=== PATIENT | female | born 1955 | race African-American/Black ===

== ENCOUNTER 2016-11-12 17:43 | Emergency (ER) | payer OTHER ==
[2016-11-12 19:27] LABS: Prothrombin Time 13.5 SEC (12.0-14.7)
[2016-11-12 19:28] LABS: PTT 31.2 SEC (22.9-36.1)
[2016-11-12 19:32] LABS: ALT (SGPT) 29 U/L (0-55); AST (SGOT) 24 U/L (5-34); Alkaline Phosphatase 148 U/L (40-150); Anion Gap 13 mmol/L (10-20); BUN (Urea Nitrogen) 19 mg/dL (9.8-20.1); Bilirubin, Total 0.9 mg/dL (0.2-1.2); Calc. Creatinine Clearance 0 mL/min (70-130); Calcium 9.4 mg/dL (7.8-10.44); Carbon Dioxide 24 mmol/L (23-31); Chloride 108 mmol/L (98-107); Estimated GFR-MDRD 71; Globulin 3.3 g/dL (2.4-3.5); Protein, Total 7.3 g/dL (5.8-8.1)
[2016-11-12 19:42] LABS: #Basophils 0.1 thou/uL (0.0-0.2); #Eosinphils 0.1 thou/uL (0.0-0.7); #Lymphocytes 2.1 thou/uL (1.20-3.40); #Monocytes 0.4 thou/uL (0.11-0.59); #Neutrophils 3.7 thou/uL (1.40-6.50); %Eosinophils 2.2 % (0.0-10.0); %Lymphocytes 32.7 % (21.0-51.0); %Monocytes 6.4 % (0.0-10.0); Mean Platelet Volume 9.5 fL (7.4-10.4); Microcytosis SLIGHT = 6-15 cells (100X) (0-5/hpf); Ovalocytes SLIGHT = 2-5 cells (100X) (0-1/hpf); Polychromasia SLIGHT = 2-3 cells (100X) (0-2/hpf); Red Blood Cell (RBC) Count 6.16 mill/uL (4.20-5.40); White Blood Cell (WBC) Count 6.4 thou/uL (4.8-10.8)
[2016-11-12 19:44] LABS: Lipase 26 U/L (8-78)
--- NOTE | 2016-11-12 20:24 | ERRECORD ---
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 No other symptoms and no more nausea. No previous episodes. HISTORIAN: History provided by patient. LOCATION FEMALE: No localizing symptoms. QUALITY: no pain. TIME COURSE: Sudden onset of symptoms, Symptoms have resolved. ASSOCIATED WITH FEMALE: No associated bright red blood per rectum, No associated chills, No associated constipation, No associated diarrhea, No associated fever, Associated with hematemesis, No associated hematuria, No associated nausea, No associated inability to tolerate oral intake, No associated urinary tract infection signs or symptoms, Associated with vomiting, Number of times: 1, currently resolved. EXACERBATED BY: Patient's condition exacerbated by nothing. RELIEVED BY: Patient's condition relieved by spontaneous. ROS (20:07 JL) CONSTITUTIONAL: Historian denies chills, denies fever. ENT: Historian denies rhinorrhea, pt reports after vomiting his throat feels a little sore. CARDIOVASCULAR: Historian denies chest pain. RESPIRATORY: Historian denies cough, denies shortness of breath, denies sputum. GI: Historian denies abdominal pain, denies constipation, denies diarrhea, reports hematemesis, denies hematochezia, denies melena, denies nausea, reports vomiting. GENITOURINARY FEMALE: Historian denies dysuria, denies frequency, denies hematuria. NEUROLOGIC: Historian denies dizziness, denies headache. HEMO/LYMPHATIC: Historian denies abnormal blood clotting, denies anemia, denies easy bruising. PAST MEDICAL HISTORY MEDICAL HISTORY: Notes: as listed, Notes: migraines,. (17:58 MSPE) FEMALE SURGICAL HISTORY: as listed plus, Surgical history of cholecystectomy, open, left knee surgery. (17:58 MSPE) PSYCHIATRIC HISTORY: No previous psychiatric history, No previous psychiatric history. (17:58 MSPE) SOCIAL HISTORY: Social History includes lives alone, Patient drinks socially, Patient denies drug use, Patient has no smoking history. (17:58 MSPE) NOTES: Nursing records reviewed, Agree with nursing records. (20:09 JLOY) &a-1R&a+25V*p+0X*n6329V*c202B*c15G*c2P*p-0X&a-25V&a+1R Name: Haley Goins : 1955 F61 MedRec: [id number] AcctNum: [id number] Prepared: SatNov 12, 2016 20:44 by Interface Page 1 of 3 pMD [facility] EMERGENCY RECORD KNOWN ALLERGIES No Known Allergies CURRENT MEDICATIONS (18:08 GHIA) None pt used to take migrane meds but not any more VITAL SIGNS VITAL SIGNS: BP: 163/95, Pulse: 72, Resp: 18, Temp: 97.8PO, Pain: 4, O2 sat: 98 on RA, Time: 11/12/2016 17:59. (17:59 GHIA) BP: 157/88, Pulse: 68, Resp: 18, Pain: 4, O2 sat: 99 on RA, Time: 11/12/2016 18:06. (18:06 GHIA) BP: 137/74, Pulse: 60, Resp: 14, O2 sat: 97 on Room Air, Time: 11/12/2016 19:05. (19:05 KASA) BP: 149/68, Pulse: 61, Resp: 15, O2 sat: 100, Time: 11/12/2016 19:30. (19:30 KASA) BP: 133/81, Pulse: 60, Resp: 15, O2 sat: 99 on Room Air, Time: 11/12/2016 20:00. (20:00 KASA) BP: 144/72, Pulse: 66, Resp: 19, Temp: 97.7 (Temporal), Pain: 4, O2 sat: 97 on Room Air, Time: 11/12/2016 20:30. (20:30 KASA) PHYSICAL EXAM (20:08 [facility]) CONSTITUTIONAL: Vital signs reviewed, Patient appears non toxic, Patient alert and oriented to person, place and time. EYES: Eye exam included findings of eyelids normal to inspection, Pupils equally round and reactive to light, Conjunctiva normal. ENT: Pharynx exam normal, Uvula exam normal, Tonsil exam normal, Mouth exam included findings of, right post soft palate with small well-defined red lesion few mm across. No active bleedings. Has the appearance of a small hemangioma. NECK: Neck exam included findings of normal range of motion, Trachea midline, no cervical adenopathy. RESPIRATORY CHEST: Respiratory exam included findings of no respiratory distress, Breath sounds clear, No wheezing, No rales, No rhonchi, Chest exam included findings of chest movement symmetrical. CARDIOVASCULAR: Cardiovascular exam included findings of heart rate regular rate and rhythm, Heart sounds normal. ABDOMEN FEMALE: Abdominal exam included findings of abdomen nontender, Bowel sounds normal. NEURO: [place] coma scale 15, Neuro exam findings include patient oriented to person, place and time, Speech normal. SKIN: Skin exam included findings of skin warm, dry, and normal in color, no rash. PSYCHIATRIC: Normal affect. DOCTOR NOTES (20:10 RHONA) TEXT: Discussed the possibility that the bleeding may have come from the lesion in her mouth. Recommended close o/p f/u with ENT for eval and possible biopsy. &a-1R&a+25V*p+0X*n8413H*c202B*c15G*c2P*p-0X&a-25V&a+1R Name: Haley Goins : 1955 F61 MedRec: [id number] AcctNum: [id number] Prepared: SatNov 12, 2016 20:44 by Interface Page 2 of 3 pMD [facility] EMERGENCY RECORD PROBLEM LIST No recorded problems DIAGNOSIS (20:01 RHONA) FINAL: PRIMARY: Nausea with vomiting. PRESCRIPTION No recorded prescriptions DISPOSITION PATIENT: Disposition Type: Discharge, Disposition: *Discharge Home. (20:01 RHONA) Patient left the department. (20:37 NAVID) Johnson: ANAHY=ANNAMARIE Mayorga, Zeina MELGOZA=MD Kenney, Chase SHOEMAKER=ANNAMARIE Betts, Maggie GARY=ANNAMARIE Pineda, Saba &a-1R&a+25V*p+0X*l4406N*c202B*c15G*c2P*p-0X&a-25V&a+1R Name: Haley Goins : 1955 F61 MedRec: [id number] AcctNum: [id number] Prepared: SatNov 12, 2016 20:44 by Interface Page 3 of 3 pMD MTDD
--- NOTE | 2016-11-12 20:30 | PICIS ---
[facility] EMERGENCY RECORD TRIAGE (17:55 MSPE) TRIAGE NOTES: Pt with vomiting with streaks of red "blood" in it. (17:55 MSPE) PATIENT: NAME: Haley Goins, AGE: 61, GENDER: female, : Sat1955, TIME OF GREET: SatNov 12, 2016 17:44, PREFERRED LANGUAGE: Romansh, ETHNICITY: Not or , ECODE BILLING MAP: [facility], SSN: [id number], Zip Code: [address], KG WEIGHT: 95.25, PHONE: , , , PERSON ID: [id number], PCP: MD GALDAMEZ ROQUE. 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 (17:55 MSPE) ADMISSION: URGENCY: 3 Urgent, ADMISSION SOURCE: Work, TRANSPORT: CAR, BED: TRIAGE. (17:55 MSPE) ASSESSMENT: Assessment: pt with vomiting with streaks of "blood" noted in it...rapid onset. (17:58 MSPE) PAIN: Patient complains of pain described as, aching, on a scale 0-10 patient rates pain as 4, Location cedillo, Pain is constant. (17:58 MSPE) IMMUNIZATIONS: Flu vaccine not up to date, Tetanus not up to date, Pneumococcal vaccine not up to date. (17:58 MSPE) SIRS SCORING: Heart Rate 55-109 (0), Temp range 96.8-101.1 (0), respiratory rate 12-24 (0), Mental Status altered: no (0). (17:58 MSPE) TRIAGE SCREENING: Patient denies suicidal ideation, Patient denies presence of domestic violence. (17:58 MSPE) LMP: LMP: Menopause. 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 (17:58 MSPE) PROVIDERS: TRIAGE NURSE: Saba Pineda RN. (17:55 MSPE) PREVIOUS VISIT ALLERGIES: No Known Allergies. (17:55 MSPE) No Known Allergies. (17:58 MSPE) KNOWN ALLERGIES No Known Allergies CURRENT MEDICATIONS (18:08 GHIA) None pt used to take migrane meds but not any more VITAL SIGNS VITAL SIGNS: BP: 163/95, Pulse: 72, Resp: 18, Temp: 97.8PO, Pain: 4, O2 sat: 98 on RA, Time: 11/12/2016 17:59. (17:59 GHIA) BP: 157/88, Pulse: 68, Resp: 18, Pain: 4, O2 sat: 99 on RA, Time: 11/12/2016 18:06. (18:06 GHIA) BP: 137/74, Pulse: 60, Resp: 14, O2 sat: 97 on Room Air, Time: 11/12/2016 19:05. (19:05 KASA) BP: 149/68, Pulse: 61, Resp: 15, O2 sat: 100, Time: 11/12/2016 19:30. (19:30 KASA) BP: 133/81, Pulse: 60, Resp: 15, O2 sat: 99 on Room Air, Time: 11/12/2016 &a-1R&a+25V*p+0X*i2964J*c202B*c15G*c2P*p-0X&a-25V&a+1R Name: Haley Goins : 1955 F61 MedRec: [id number] AcctNum: [id number] Prepared: SatNov 12, 2016 20:51 by Interface Page 1 of 8 pMD [facility] EMERGENCY RECORD 20:00. (20:00 KASA) BP: 144/72, Pulse: 66, Resp: 19, Temp: 97.7 (Temporal), Pain: 4, O2 sat: 97 on Room Air, Time: 11/12/2016 20:30. (20:30 KASA) NURSING ASSESSMENT: HEAD-TO-TOE (17:59 GHIA) CONSTITUTIONAL: Patient arrives ambulatory, Gait steady, History obtained from patient, Patient appears comfortable, Patient cooperative, Patient alert, Oriented to person, place and time, Skin warm, Skin dry, Skin normal in color, Mucous membranes pink, Mucous membranes moist, Patient is well-groomed, Patient complains of vomiting (with red streaks); CEDILLO, Pt in room in bed in gown. Assess. Plan of care of pt in Er discussed. PAIN: aching pain, Cedillo...all day...is 'normal for pt", Onset of pain 30 " min ago, constant, on a scale 0-10 patient rates pain as 4. SKIN: Skin assessment findings include skin warm, Skin dry, Skin normal in color, Notes: intact. RESPIRATORY/CHEST: Respiratory assessment findings include respiratory effort easy. CARDIOVASCULAR: Cardiovascular assessment findings include heart rate normal. ABDOMEN: Abdomen assessment findings include abdomen symmetrical, Associated with nausea, Associated with vomiting, no associated diarrhea. GENITOURINARY FEMALE: no associated urinary complaints. NOTES: Emotional support needed and given, Patient tolerated procedure well. VITAL SIGNS: BP: 163, / 95, Pulse: 72, Resp: 18, Temp: 97.8PO, Pain: 4, O2 sat: 98, on: RA. NURSING PROCEDURE: COMMUNICATIONS (19:44 KASA) COMMUNICATIONS: Critical lab value, received at 1944, received from [facility], Critical lab result: Lipase -26, given to Dr. Moulton, results read back and verified. NURSING PROCEDURE: DISCHARGE NOTE (20:33 KASA) DISCHARGE: Patient discharged to home, ambulating without assistance, driving self, unaccompanied, Summary of Care printed/ provided, Discharge instructions given to patient, Simple or moderate discharge teaching performed, . Educated and provided handout regarding diagnosis of: Nausea with vomiting Follow up with PCP as needed Follow up with Specialist in 7-10 days, Above person(s) verbalized understanding of discharge instructions and follow-up care, Patient treated and evaluated by physician. BELONGINGS: Belongings and valuables with patient upon arrival to the Emergency Department include:, Belongings and valuables with patient at time of discharge include:, Belongings remain with patient, Valuables remain with patient. &a-1R&a+25V*p+0X*s5002K*c202B*c15G*c2P*p-0X&a-25V&a+1R Name: Haley Goins : 1955 F61 MedRec: [id number] AcctNum: [id number] Prepared: SatNov 12, 2016 20:51 by Interface Page 2 of 8 pMD [facility] EMERGENCY RECORD SAFETY: Side rails up, Cart/Stretcher in lowest position, Call light within reach, Hospital ID band on. NURSING PROCEDURE: LAB DRAW (19:10 KASA) PATIENT IDENTIFIER: Patient actively involved in identification process, Patient's identity verified by patient stating name, Patient's identity verified by patient stating date. LAB DRAW: Lab draw indicated for obtaining specimens for evaluation, Initial lab draw performed, by venipuncture, from left antecubital, in one attempt, Lab specimens labeled in the presence of the patient and sent to lab. FOLLOW-UP: After procedure, dressing applied to site, After procedure, no swelling at site, After procedure, no active bleeding from site. SAFETY: Side rails up, Cart/Stretcher in lowest position, Call light within reach, Hospital ID band on. NURSING PROCEDURE: NURSE NOTES NURSES NOTES: Patient in no apparent distress, Assistance offered to patient, Notes: Call light given to pt with instructions on use. (18:06 GHIA) Shift change report given, to to Maggie Rn at bedside, Provided opportunity to answer questions, Pt sitting up in bed; cheerful. No c/o. (19:07 GHIA) VITAL SIGNS: BP: 157, / 88, Pulse: 68, Resp: 18, Pain: 4, O2 sat: 99, on: RA. (18:06 GHIA) ORDER DETAILS Order Name: CBC with Differential, Status: Active, Time: 18:57 11/12/2016, User: RHONA, - Ordered for: MD Moulton Joshua, - Entered by: MD Moulton Joshua - [facility] Nov 12, 2016 18:57, - Quantity: 1, Order Name: Comprehensive Metabolic Panel, Status: Active, Time: 18:57 11/12/2016, User: RHONA, - Ordered for: MD Moulton Joshua, - Entered by: MD Moulton Joshua - [facility] Nov 12, 2016 18:57, - Quantity: 1, Order Name: Lipase, Status: Active, Time: 18:57 11/12/2016, User: RHONA, - Ordered for: MD Moulton Joshua, - Entered by: MD Moulton Joshua - [facility] Nov 12, 2016 18:57, - Quantity: 1, Order Name: Protime with INR, Status: Active, Time: 18:57 11/12/2016, User: RHONA, - Ordered for: MD Moulton Joshua, - Entered by: MD Moulton Joshua - SatNov 12, 2016 18:57, - Quantity: 1, Order Name: PAOLO, Status: Active, Time: 18:57 11/12/2016, User: RHONA, &a-1R&a+25V*p+0X*s4003T*c202B*c15G*c2P*p-0X&a-25V&a+1R Name: Haley Goins : 1955 F61 MedRec: [id number] AcctNum: [id number] Prepared: SatNov 12, 2016 20:51 by Interface Page 3 of 8 pMD [facility] EMERGENCY RECORD - Ordered for: MD Moulton Joshua, - Entered by: MD Moulton Joshua - SatNov 12, 2016 18:57, - Quantity: 1. 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 No other symptoms and no more nausea. No previous episodes. HISTORIAN: History provided by patient. LOCATION FEMALE: No localizing symptoms. QUALITY: no pain. TIME COURSE: Sudden onset of symptoms, Symptoms have resolved. ASSOCIATED WITH FEMALE: No associated bright red blood per rectum, No associated chills, No associated constipation, No associated diarrhea, No associated fever, Associated with hematemesis, No associated hematuria, No associated nausea, No associated inability to tolerate oral intake, No associated urinary tract infection signs or symptoms, Associated with vomiting, Number of times: 1, currently resolved. EXACERBATED BY: Patient's condition exacerbated by nothing. RELIEVED BY: Patient's condition relieved by spontaneous. ROS (20:07 RHONA) CONSTITUTIONAL: Historian denies chills, denies fever. ENT: Historian denies rhinorrhea, pt reports after vomiting his throat feels a little sore. CARDIOVASCULAR: Historian denies chest pain. RESPIRATORY: Historian denies cough, denies shortness of breath, denies sputum. GI: Historian denies abdominal pain, denies constipation, denies diarrhea, reports hematemesis, denies hematochezia, denies melena, denies nausea, reports vomiting. GENITOURINARY FEMALE: Historian denies dysuria, denies frequency, denies hematuria. NEUROLOGIC: Historian denies dizziness, denies headache. HEMO/LYMPHATIC: Historian denies abnormal blood clotting, denies anemia, denies easy bruising. PAST MEDICAL HISTORY MEDICAL HISTORY: Notes: as listed, Notes: migraines,. (17:58 MSPE) FEMALE SURGICAL HISTORY: as listed plus, Surgical history of cholecystectomy, open, left knee surgery. (17:58 MSPE) PSYCHIATRIC HISTORY: No previous psychiatric history, No previous psychiatric history. (17:58 MSPE) SOCIAL HISTORY: Social History includes lives alone, Patient drinks socially, Patient denies drug use, Patient has no &a-1R&a+25V*p+0X*t8691N*c202B*c15G*c2P*p-0X&a-25V&a+1R Name: Haley Goins : 1955 F61 MedRec: [id number] AcctNum: [id number] Prepared: SatNov 12, 2016 20:51 by Interface Page 4 of 8 pMD [facility] EMERGENCY RECORD smoking history. (17:58 MSPE) NOTES: Nursing records reviewed, Agree with nursing records. (20:09 [facility]) PHYSICAL EXAM (20:08 [facility]) CONSTITUTIONAL: Vital signs reviewed, Patient appears non toxic, Patient alert and oriented to person, place and time. EYES: Eye exam included findings of eyelids normal to inspection, Pupils equally round and reactive to light, Conjunctiva normal. ENT: Pharynx exam normal, Uvula exam normal, Tonsil exam normal, Mouth exam included findings of, right post soft palate with small well-defined red lesion few mm across. No active bleedings. Has the appearance of a small hemangioma. NECK: Neck exam included findings of normal range of motion, Trachea midline, no cervical adenopathy. RESPIRATORY CHEST: Respiratory exam included findings of no respiratory distress, Breath sounds clear, No wheezing, No rales, No rhonchi, Chest exam included findings of chest movement symmetrical. CARDIOVASCULAR: Cardiovascular exam included findings of heart rate regular rate and rhythm, Heart sounds normal. ABDOMEN FEMALE: Abdominal exam included findings of abdomen nontender, Bowel sounds normal. NEURO: [place] coma scale 15, Neuro exam findings include patient oriented to person, place and time, Speech normal. SKIN: Skin exam included findings of skin warm, dry, and normal in color, no rash. PSYCHIATRIC: Normal affect. EVENTS TRANSFER: Triage to Emergency Triage. (SatNov 12, 2016 17:55 MSPE) Emergency Triage to Emergency Room -03. (18:01 MSPE) Removed from Emergency Emergency Room -03. (20:37 KASA) DOCTOR NOTES (20:10 JL) TEXT: Discussed the possibility that the bleeding may have come from the lesion in her mouth. Recommended close o/p f/u with ENT for eval and possible biopsy. PROBLEM LIST No recorded problems DIAGNOSIS (20: JL) FINAL: PRIMARY: Nausea with vomiting. DISPOSITION PATIENT: Disposition Type: Discharge, Disposition: *Discharge Home. (20:01 JLOY) Patient left the department. (20:37 KASA) &a-1R&a+25V*p+0X*y2163I*c202B*c15G*c2P*p-0X&a-25V&a+1R Name: Haley Goins : 1955 F61 MedRec: [id number] AcctNum: [id number] Prepared: SatNov 12, 2016 20:51 by Interface Page 5 of 8 pMD [facility] EMERGENCY RECORD INSTRUCTION (20:03 JLOY) DISCHARGE: NAUSEA VOMITING 6YADULT. FOLLOWUP: MD RUDOLPH, ARNOLDO, [facility], [address] [place] [id number], [id number], Emily MIKE., PETRA Otolaryngology, [address] [facility] [address], , Follow up with Specialist in 7-10 days. SPECIAL: You have a small area at the back of your mouth that needs to be evaluated by an ENT doctor. This is probably the source of your bleeding but does not appear to be bleeding any longer. PRESCRIPTION No recorded prescriptions ADMIN (20:10 JL) DIGITAL SIGNATURE: MD Moulton Joshua. RESULTS (20:01 JL) LABORATORY: CBC with Differential Collection DT: SatNov 12, 2016 19:13, White Blood Cell (WBC) Count 6.4 thou/uL, Range (4.8-10.8), *Red Blood Cell (RBC) Count 6.16 - H mill/uL, Range (4.20-5.40), Hemoglobin 13.0 g/dL, Range (12.0-16.0), Hematocrit 44.0 %, Range (36.0-47.0), *Mean Corpuscular Volume 71.5 - L fl, Range (81.0-99.0), *Mean Corpuscular Hemoglobin 21.2 - L pg, Range (27.0-31.0), *Mean Corpuscular HGB CONC 29.6 - L g/dL, Range (32.0-36.0), RBC Distribution Width 14.1 %, Range (11.5-14.5), Platelet Count 222 thou/uL, Range (130-400), Mean Platelet Volume 9.5 fL, Range (7.4-10.4), %Neutrophils 57.7 %, Range (42.0-75.0), %Lymphocytes 32.7 %, Range (21.0-51.0), %Monocytes 6.4 %, Range (0.0-10.0), %Eosinophils 2.2 %, Range (0.0-10.0), %Basophils 1.0 %, Range (0.0-1.0), #Neutrophils 3.7 thou/uL, Range (1.40-6.50), #Lymphocytes 2.1 thou/uL, Range (1.20-3.40), #Monocytes 0.4 thou/uL, Range (0.11-0.59), #Eosinphils 0.1 thou/uL, Range (0.0-0.7), #Basophils 0.1 thou/uL, Range (0.0-0.2), Microcytosis SLIGHT = 6-15 cells (100X), Range (0-5/hpf), Polychromasia SLIGHT = 2-3 cells (100X), Range (0-2/hpf), Ovalocytes SLIGHT = 2-5 cells (100X), Range (0-1/hpf), PLT Morphology Comment Appears Adequate . Lipase Collection DT: SatNov 12, 2016 19:13, Lipase 26 U/L, Range (8-78), CALLED TO AMIE. Comprehensive Metabolic Panel Collection DT: SatNov 12, 2016 19:13, Sodium 141 mmol/L, Range (136-145), Potassium 3.6 mmol/L, Range (3.5-5.1), *Chloride 108 - H mmol/L, Range (98-107), &a-1R&a+25V*p+0X*z9110P*c202B*c15G*c2P*p-0X&a-25V&a+1R Name: Haley Goins : 1955 F61 MedRec: [id number] AcctNum: [id number] Prepared: SatNov 12, 2016 20:51 by Interface Page 6 of 8 pMD [facility] EMERGENCY RECORD Carbon Dioxide 24 mmol/L, Range (23-31), Anion Gap 13 mmol/L, Range (10-20), BUN (Urea Nitrogen) 19 mg/dL, Range (9.8-20.1), Creatinine 0.97 mg/dL, Range (0.6-1.1), Estimated GFR-MDRD 71 , Reference Range for Estimated GFR: Greater than 90, mL/min/1.73 m2 NOTE: The MDRD equation has not been validated for use, with the elderly (over 70 years of age), women, patients with, serious comorbid condition or persons with extremes of body size, muscle, mass, or nutritional status. , Glucose 100 mg/dL, Range (80-115), Calcium 9.4 mg/dL, Range (7.8-10.44), Bilirubin, Total 0.9 mg/dL, Range (0.2-1.2), Protein, Total 7.3 g/dL, Range (5.8-8.1), NOTE: Plasma values are generally 0.3 to 0.5 g/dL higher than serum values, due to the presence of fibrinogen. , Albumin 4.0 g/dL, Range (3.4-4.8), Globulin 3.3 g/dL, Range (2.4-3.5), Alb/Glob Ratio 1.2 g/dL, Range (1.2-2.2), Alkaline Phosphatase 148 U/L, Range (40-150), AST (SGOT) 24 U/L, Range (5-34), ALT (SGPT) 29 U/L, Range (0-55). PTT Collection DT: SatNov 12, 2016 19:13, See comment below , Anticoagulant? NONE Medical Necessity SUSPECT COAGULOPATHY , PTT 31.2 SEC, Range (22.9-36.1). Protime with INR Collection DT: SatNov 12, 2016 19:13, See comment below , Anticoagulant? NONE Medical Necessity SUSPECT COAGULOPATHY , Prothrombin Time 13.5 SEC, Range (12.0-14.7), INR-International Normal Ratio 1.0 , ATTENTION: READ CAREFULLY , The, recommended therapeutic ranges for oral anticoagulant treatments are: , , Low Intensity: 1.5 - 2.0 Moderate Intensity: 2.0, - 3.0 High Intensity (1): 2.5 - 3.5 High, Intensity (2): 3.0 - 4.0 CRITICAL: >, 4.0 . Johnson: ANAHY=ANNAMARIE Mayorga, Zeina MELGOZA=MD Kenney, Chase SHOEMAKER=ANNAMARIE Betts, Maggie &a-1R&a+25V*p+0X*c2775I*c202B*c15G*c2P*p-0X&a-25V&a+1R Name: Haley Goins : 1955 F61 MedRec: [id number] AcctNum: [id number] Prepared: SatNov 12, 2016 20:51 by Interface Page 7 of 8 pMD [facility] EMERGENCY RECORD MSPE=ANNAMARIE Pineda, Saba &a-1R&a+25V*p+0X*j6230N*c202B*c15G*c2P*p-0X&a-25V&a+1R Name: Haley Goins : 1955 F61 MedRec: [id number] AcctNum: [id number] Prepared: SatNov 12, 2016 20:51 by Interface Page 8 of 8 pMD [facility] MEDICATION RECONCILIATION You were seen in the Emergency Department on: SatNov 12, 2016 KNOWN ALLERGIES No Known Allergies HOME MEDICATIONS None CONTINUE PRESCRIBED pt used to take migrane meds but not any more Continue as prescribed &a-1R&a+25V*p+0X*m3090U*c202B*c15G*c2P*p-0X&a-25V&a+1R Name: Haley Goins : 1955 F61 MedRec: [id number] AcctNum: [id number] Prepared: SatNov 12, 2016 20:51 by Interface pMD MTDIndy
== END 2016-11-12 20:33 | disposition home or self-care (01) ==
LOC: NAV ERS 17:43
DX: R11.2 Nausea with vomiting, unspecified (principal)
CPT/HCPCS: 80053; 83690; 85025; 85610; 85730; 99284

== ENCOUNTER 2020-11-05 14:14 | Emergency (ER) | payer OTHER ==
[2020-11-05] MEDS ORDERED: Ondansetron ODT 4 MG TAB ONE (15:05)
[2020-11-05] MEDS ORDERED: Acetaminophen/Codeine 30-300mg Tablet ONE ×2 (15:25→15:31)
[2020-11-05 15:35] LABS: ALT (SGPT) 58 U/L (8-55); AST (SGOT) 49 U/L (5-34); Albumin 4.1 g/dL (3.4-4.8); Alkaline Phosphatase 133 U/L (40-110); Anion Gap 15 mmol/L (10-20); BUN (Urea Nitrogen) 12 mg/dL (9.8-20.1); Bilirubin, Total 0.6 mg/dL (0.2-1.2); Calc. Creatinine Clearance 0 mL/min (70-130); Calcium 8.9 mg/dL (7.8-10.44); Carbon Dioxide 22 mmol/L (23-31); Chloride 105 mmol/L (98-107); Globulin 3.8 g/dL (2.4-3.5); Glucose 99 mg/dL (80-115); Potassium 3.4 mmol/L (3.5-5.1); Protein, Total 7.9 g/dL (6.0-8.3); Sodium 139 mmol/L (136-145)
[2020-11-05 15:37] LABS: #Basophils 0.1 thou/uL (0.0-0.2); #Lymphocytes 1.1 thou/uL (1.20-3.40); #Monocytes 0.5 thou/uL (0.11-0.59); #Neutrophils 4.1 thou/uL (1.40-6.50); %Basophils 1.3 % (0.0-1.0); %Eosinophils 0.2 % (0.0-10.0); %Lymphocytes 18.3 % (21.0-51.0); %Monocytes 8.7 % (0.0-10.0); %Neutrophils 71.5 % (42.0-75.0); Mean Corpuscular HGB CONC 29.5 g/dL (32.0-36.0); Mean Corpuscular Hemoglobin 21.7 pg (27.0-31.0); Mean Corpuscular Volume 73.8 fL (78.0-98.0); Mean Platelet Volume 10.1 fL (7.4-10.4); Platelet Count 188 thou/uL (130-400); Red Blood Cell (RBC) Count 6.46 mill/uL (4.20-5.40); White Blood Cell (WBC) Count 5.7 thou/uL (4.8-10.8)
[2020-11-05 15:37] LABS: Bilirubin Negative (Negative); Blood, Urine Negative (Negative); Clarity Clear (Clear); Glucose, Urine (Dipstick) Negative (Negative); Ketone, Urine Trace mg/dL (Negative); Leukocyte Negative (Negative); Nitrite Negative (Negative); Protein, Urine (Dipstick) 30 mg/dL (Neg-Trace); Specific Gravity, Urine 1.025 (1.005-1.030)
[2020-11-05 15:38] LABS: Bacteria/HPF Rare-Few HPF (None Seen); RBC/HPF 0-3 HPF (0-3); Squamous Epithelial Greater than 50 HPF (0-3); WBC/HPF 0-3 HPF (0-3)
[2020-11-05 15:43] LABS: MDiff Complete? YES; Microcytosis SLIGHT = 6-15 cells (100X) (0-5/hpf); Platelet Morphology Comment Appears Adequate
[2020-11-06 21:21] LABS: SARS-CoV-2 MS2 Positive; SARS-CoV-2 N Gene Positive; SARS-CoV-2 S Gene Positive; SARS-CoV-2 by NAA DETECTED (NotDetected); SARS-CoV-2 orf1ab Positive
== END 2020-11-05 16:20 | disposition home or self-care (01) ==
LOC: NAV ERS 14:14
DX: U07.1 COVID-19 (principal); S39.012A Strain of muscle, fascia and tendon of lower back, initial encounter
CPT/HCPCS: 36415; 80053; 81003; 81015; 83690; 85025; 87635; 87804; Q0162; U0003

== ENCOUNTER 2022-09-10 06:33 | Emergency (ER) | payer OTHER | END 2022-09-10 07:45 | disposition home or self-care (01) | LOC: NAV ERS 06:33 | DX: S46.012A Strain of muscle(s) and tendon(s) of the rotator cuff of left shoulder, initial encounter (principal) | CPT/HCPCS: 99283 ==

== ENCOUNTER 2025-10-23 15:36 | Emergency (ER) | payer SELFPAY ==
[2025-10-23] MEDS ORDERED: predniSONE 20 MG TAB ONE (16:10)
== END 2025-10-23 16:21 | disposition home or self-care (01) ==
LOC: NAV ERS 15:36
DX: M54.31 Sciatica, right side (principal)
CPT/HCPCS: 99283; J7512